=== PATIENT | female | born 1970 | race African-American/Black ===

== ENCOUNTER 2020-08-17 12:43 | Day surgery (SDC) | payer BC, OTHER ==
[2020-08-17] MEDS ORDERED: LIDOCAINE 1% INJ-PF (10 MG/ML) 30 ML SDV ONE (13:32)
== END 2020-08-17 13:30 | disposition home or self-care (01) ==
LOC: WI 12:43 → EDSTATUS 13:00 → WI 13:30
PROVIDERS: ATTEND Surgery
DX: R59.0 Localized enlarged lymph nodes (principal)
CPT/HCPCS: 88342 ×2; 88341 ×2; 88305 ×2; 19083; 77066; 77065; J3490; G0279; 77062